=== PATIENT | male | born 1945 | race Hispanic/Latino ===

== ENCOUNTER → 2021-12-28 | Outpatient (CLI) | payer OTHER ==
[~2021-12-28] MED LIST: ATOR20TA65 PO; ISOS30TA92 PO; LEVO25TA54 PO; METF-446 PO; METO25TA6 PO; NITR0.4T50 SL; PANT40TA54 PO
== END | disposition home or self-care (01) ==
LOC: SHCH 12:49
PROVIDERS: ATTEND Internal Medicine Cardiovascular Disease
DX: I73.9 Peripheral vascular disease, unspecified (principal); I65.23 Occlusion and stenosis of bilateral carotid arteries
CPT/HCPCS: 93880; 93925

== ENCOUNTER → 2023-06-09 | Outpatient (CLI) | payer OTHER | END | disposition home or self-care (01) | LOC: SHCH 10:42 | PROVIDERS: ATTEND Internal Medicine Cardiovascular Disease | DX: I51.7 Cardiomegaly (principal); I65.22 Occlusion and stenosis of left carotid artery; R01.1 Cardiac murmur, unspecified; R06.09 Other forms of dyspnea | CPT/HCPCS: 93306; 93880 ==

== ENCOUNTER → 2023-07-10 | Outpatient (CLI) | payer OTHER ==
[2023-07-10] MEDS: REGADENOSON 0.4 MG/5 ML PF SYG IVP ONE (13:18)
== END | disposition home or self-care (01) ==
LOC: SHCH 08:52
PROVIDERS: ATTEND Internal Medicine Cardiovascular Disease
DX: I25.9 Chronic ischemic heart disease, unspecified (principal)
CPT/HCPCS: 78452; 96374; 93017; J2785; A9500 ×2

== ENCOUNTER → 2024-10-03 | Outpatient (CLI) | payer OTHER ==
--- NOTE | 2024-10-04 11:28 | HMCIMG ---
US ARTERIAL BILAT LOW EXT DUPL HISTORY: type 2 diabetes US ARTERIAL BILAT LOW EXT DUPL HISTORY: type 2 diabetes TECHNIQUE: Duplex Doppler evaluation of the arteries of both legs performed. FINDINGS: Grayscale images revealed intimal calcifications throughout both lower extremities. Peak systolic velocities and wave patterns were documented, as follows: RIGHT LEG There is mild calcified plaque multilevel which is hemodynamically not significant. Common femoral: 93 cm/s Triphasic Profunda femoral: Not provided Superficial femoral prox: 94 cm/s Triphasic Superficial femoral mid: 82 cm/s Triphasic Superficial femoral distal: 51 cm/s Triphasic Popliteal: 86 cm/s Triphasic Posterior tibial: 54 cm/s Triphasic Dorsalis pedis: 123 cm/s Triphasic LEFT LEG Mild calcified plaque multilevel which is hemodynamically not significant Common femoral: 75 cm/s Triphasic Profunda femoral: Not provided Superficial femoral prox: 71 cm/s Triphasic Superficial femoral mid: 90 cm/s Triphasic Superficial femoral distal: 74 cm/s Triphasic Popliteal: 75 cm/s Triphasic Posterior tibial: 29 cm/s Triphasic Dorsalis pedis: 105 cm/s Triphasic IMPRESSION: Mild calcified plaque otherwise a normal bilateral lower extremity arterial Doppler. .
== END | disposition home or self-care (01) ==
LOC: RAH 14:25
PROVIDERS: ATTEND Internal Medicine
DX: I70.203 Unspecified atherosclerosis of native arteries of extremities, bilateral legs (principal); E11.51 Type 2 diabetes mellitus with diabetic peripheral angiopathy without gangrene
CPT/HCPCS: 93925